=== PATIENT | male | born 1980 | race Caucasian/White ===

== ENCOUNTER → 2020-06-19 | Outpatient (CLI) | payer MEDICARE, OTHER | LOC: KOH-I 04-10 15:30 | DX: M54.9 Dorsalgia, unspecified (principal); G89.29 Other chronic pain; T07.XXXA Unspecified multiple injuries, initial encounter; Z53.8 Procedure and treatment not carried out for other reasons ==

== ENCOUNTER → 2020-08-29 | Outpatient (CLI) | payer MEDICARE, OTHER | LOC: KOH-I 08-22 15:15 | DX: S83.104A Unspecified dislocation of right knee, initial encounter (principal); M25.561 Pain in right knee | CPT/HCPCS: 73721 ==